=== PATIENT | female | born 1945 | race Caucasian/White ===

== ENCOUNTER 2021-01-06 09:03 | Day surgery (SDC) | payer MEDICARE ==
[2021-01-06] MEDS ORDERED: Vancomycin HCl 500 MG VIAL ONE (09:47)
[2021-01-06] MEDS ORDERED: Vancomycin 1 GM/200 ML BAG ONE (09:47)
[2021-01-06] MEDS ORDERED: Gentamicin 80 MG/2 ML VIAL ONE (13:14)
[2021-01-06] MEDS ORDERED: CEFAZOLIN 1 GM VIAL ONE (13:14)
[2021-01-06] MEDS ORDERED: Lidocaine 1% (PF) 30 ML VIAL ONE (13:14)
[2021-01-06] MEDS ORDERED: Midazolam HCl 2 mg/2 ml Vial ONE ×2 (14:10→14:33)
[2021-01-06] MEDS ORDERED: Fentanyl 100 MCG/2 ML VIAL ONE (14:12)
[2021-01-06] MEDS ORDERED: Famotidine/PF 20 mg/2ml Vial ONE (15:20)
[2021-01-06] MEDS ORDERED: diphenhydrAMINE 50 MG/ML VIAL ONE (15:20)
== END 2021-01-06 19:30 | disposition home or self-care (01) ==
LOC: SDC 09:03
PROVIDERS: ATTEND Internal Medicine Cardiovascular Disease
PROC: 0JPT0PZ Removal of Cardiac Rhythm Related Device from Trunk Subcutaneous Tissue and Fascia, Open Approach (ICD-10-PCS; principal; 2021-01-06)
PROC: 0JH606Z Insertion of Pacemaker, Dual Chamber into Chest Subcutaneous Tissue and Fascia, Open Approach (ICD-10-PCS; 2021-01-06)
DX: I44.2 Atrioventricular block, complete (principal); I49.5 Sick sinus syndrome; I48.3 Typical atrial flutter; I48.0 Paroxysmal atrial fibrillation; I10 Essential (primary) hypertension; I34.0 Nonrheumatic mitral (valve) insufficiency; E78.5 Hyperlipidemia, unspecified; Z79.01 Long term (current) use of anticoagulants; Z79.899 Other long term (current) drug therapy; Z88.8 Allergy status to other drugs, medicaments and biological substances; Z95.0 Presence of cardiac pacemaker
CPT/HCPCS: 33228; C1785; 99152; 99153; J0690; J1200; J1580; J2001; J2250; J3010; J3370; S0028